=== PATIENT | male | born 2000 | race Caucasian/White ===

== ENCOUNTER 2021-06-16 21:30 | Emergency (ER) | payer MEDICAID, OTHER ==
[~2021-06-16] VITALS: Ht 160 cm; Wt 136.1 kg
[2021-06-16 21:32] VITALS: BP 144/77
--- NOTE | 2021-06-16 22:19 | NUR ---
Wheel chair to bed 1.
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
[2021-06-16] MEDS ORDERED: KETOROLAC 30 MG/ML VIAL IM ONE (23:30)
[2021-06-17] MEDS ORDERED: NAPR-54 PO (00:35)
[2021-06-17 00:40] VITALS: BP 144/77
== END 2021-06-17 00:40 | disposition home or self-care (01) ==
LOC: MED 21:30
DX: S06.0X9A Concussion with loss of consciousness of unspecified duration, initial encounter (principal); S20.212A Contusion of left front wall of thorax, initial encounter; S29.012A Strain of muscle and tendon of back wall of thorax, initial encounter; V49.3XXA Car occupant (driver) (passenger) injured in unspecified nontraffic accident, initial encounter; Y93.89 Activity, other specified; Y92.89 Other specified places as the place of occurrence of the external cause; Y99.8 Other external cause status
CPT/HCPCS: 96372; 99283; J1885